=== PATIENT | male | born 1945 | race Caucasian/White ===

== ENCOUNTER 2017-02-20 07:24 | Emergency (ER) | payer MEDICARE ==
--- NOTE | 2017-02-25 10:38 | ER ---
ADMIT: 02/20/2017 RM/LOC: [facility] MR#: [id number] [facility] [address] [place], [place] [id number] [address] [place] [id number] Emergency Room Report SEX: M AGE: 71 : 1945 DATE: 02/20/2017 A 71-year-old white male coming in just not feeling well. He drove 500 miles yesterday from [facility] to here. He thinks he has a little bit tired about it. He has had a TIA in the past. We did get old records from the [facility] where he had a TIA. He has had that worked up. MRI has been seen for. He is supposed to be taking that baby aspirin daily which he is, including taking Pepto-Bismol for like the reflux I said. He should not be taking that but he used Maalox. In between, we did give him a GI cocktail for his reflux. CBC, chemistry, EKG, I did general exam is negative. His neuro exam is completely normal. Again, he says he is going to check in a hotel, rest, eat some food and then follow up as needed. He says he is driving out to [place]. I said it is a long drive. He says he has done it before. CONDITION ON DISCHARGE: Good. Arnaud Hernández MD/ ike JOB #: [id number] CC: Arnaud Hernández MD, Attending Physician UNKNOWN, Family Physician
== END 2017-02-20 09:40 | disposition home or self-care (01) ==
LOC: ER 07:24
DX: R53.1 Weakness (principal); I10 Essential (primary) hypertension; E78.5 Hyperlipidemia, unspecified; Z90.89 Acquired absence of other organs; Z88.8 Allergy status to other drugs, medicaments and biological substances